=== PATIENT | male | born 1945 | race Caucasian/White ===

== ENCOUNTER 2018-03-10 12:45 | Emergency (ER) | payer OTHER ==
[~2018-03-10] VITALS: Ht 175.3 cm; Wt 83.9 kg
[~2018-03-10 12:45] MED LIST: LEVSOD125 PO; PRAZ1 PO; Percocet 5-3251 EACH PO
== END 2018-03-10 14:31 | disposition home or self-care (01) ==
LOC: ER 12:45
DX: S29.012A Strain of muscle and tendon of back wall of thorax, initial encounter (principal); V89.2XXA Person injured in unspecified motor-vehicle accident, traffic, initial encounter; Z79.899 Other long term (current) drug therapy
CPT/HCPCS: 72070; 99284-25